=== PATIENT | female | born 1990 | race African-American/Black ===

== ENCOUNTER 2017-01-23 17:43 | Emergency (ER) | payer BC ==
[~2017-01-23] VITALS: Ht 165.1 cm; Wt 111.4 kg
[~2017-01-23 17:43] MED LIST: (None)3.5 GM OP; AMOXICILLIN500 MG OR; AMOXICILLIN500 MG PO; BACTRIM DS1 TAB PO; BLEPH-1010 % OU; CIPRO500 MG OR; CIPROFLOXACN500 MG PO; DENIES HOME MED; DEPO-PROVER400 MG/ML IM; FLEXERIL PO; FLONASE NASAL50 MCG; GENTAMICIN15 ML/BTL OP; LORTAB 10-325 M1 TAB PO; LORTAB 5 OR; MACRODANTIN100 MG OR; METRONIDAZOL500 MG PO; NO; NO HOME MEDS; NO MEDS; PENICILLN VK500 M1 PO; PENICILLN VK500 MG OR; PENICILLN VK500 MG PO; PERCOCET 5/325M1 TAB OR; PERCOCET1 TA4 PO; PREDNISONE10 MG PO; PRENATAL1 TAB OR; PROMETHAZINE25 MG RE; PROVENTIL HFA IN; REGLAN10 MG OR; ROBITUSS12 OR; ROBITUSSIN AC10 ML PO; ULTRAM50 M1 OR; ULTRAM50 M1 PO; ULTRAM50 MG OR; ULTRAM50 MG PO; ZESTRIL10 M1 PO; ZITHROMAX250 MG PO; ZOFRAN ODT4 MG OR; ZOFRAN ODT4 MG PO; ZOFRAN ODT8 MG PO; ZPAK OR; ZPAK PO
[2017-01-23 18:11] VITALS: BP 119/60
== END 2017-01-23 18:11 | disposition left against medical advice (07) | DRG 951 ==
LOC: ED 17:43 → LWOBS 18:11
DX: Z91.19 Patient's noncompliance with other medical treatment and regimen (principal)

== ENCOUNTER 2017-02-11 19:46 | Emergency (ER) | payer BC ==
[~2017-02-11] VITALS: Ht 165.1 cm; Wt 111.3 kg
[2017-02-11 21:17] VITALS: BP 130/82
== END 2017-02-11 21:30 | disposition home or self-care (01) | DRG 93 ==
LOC: ED 19:46
DX: R29.818 Other symptoms and signs involving the nervous system (principal); I10 Essential (primary) hypertension

== ENCOUNTER 2017-03-08 22:56 | Emergency (ER) | payer BC ==
[~2017-03-08] VITALS: Ht 165.1 cm; Wt 119.0 kg
[2017-03-08] MEDS ORDERED: AMOXICILLIN500 MG PO (23:15)
[2017-03-08] MEDS ORDERED: ULTRAM50 M1 PO (23:15)
[2017-03-08 23:55] VITALS: BP 128/86
== END 2017-03-08 23:55 | disposition home or self-care (01) | DRG 159 ==
LOC: ED 22:56
DX: K04.7 Periapical abscess without sinus (principal); S02.5XXA Fracture of tooth (traumatic), initial encounter for closed fracture

== ENCOUNTER 2017-04-07 10:52 | Emergency (ER) | payer BC ==
[~2017-04-07] VITALS: Ht 165.1 cm; Wt 111.0 kg
[2017-04-07] MEDS ORDERED: ULTRAM50 M1 PO (12:30)
[2017-04-07 12:44] VITALS: BP 121/80
== END 2017-04-07 12:40 | disposition home or self-care (01) | DRG 563 ==
LOC: ED 10:52
DX: S93.401A Sprain of unspecified ligament of right ankle, initial encounter (principal); W06.XXXA Fall from bed, initial encounter; X50.1XXA Overexertion from prolonged static or awkward postures, initial encounter; Y93.84 Activity, sleeping; Y92.003 Bedroom of unspecified non-institutional (private) residence as the place of occurrence of the external cause

== ENCOUNTER 2017-04-27 20:19 | Emergency (ER) | payer BC ==
[~2017-04-27] VITALS: Ht 165.1 cm; Wt 116.0 kg
[2017-04-27 21:00] VITALS: BP 144/72
[2017-04-27 21:07] LABS: URINE BILIRUBIN - DIPSTICK NEGATIVE (NEGATIVE); URINE BLOOD DIPSTICK LARGE (NEGATIVE); URINE CLARITY TURBID; URINE COLOR YELLOW; URINE GLUCOSE - DIPSTICK NEGATIVE (NEGATIVE); URINE KETONE NEGATIVE (NEGATIVE); URINE LEUK ESTERASE SMALL (NEGATIVE); URINE NITRITE - DIPSTICK NEGATIVE (Negative); URINE PH 5.5 (4.5-8.0); URINE PROTEIN - DIPSTICK 30 mg/dL (NEG-TRACE); URINE SPECIFIC GRAVITY <=1.005; URINE UROBILINOGEN - DIPSTICK 0.2 E.U./dL (0.2)
[2017-04-27 21:28] LABS: URINE BACTERIA RARE hpf; URINE RBC TNTC RBC/hpf (0-5); URINE SQUAMOUS EPITHELIAL CELL FEW EPI/hpf (0-FEW)
== END 2017-04-27 21:41 | disposition left against medical advice (07) | DRG 690 ==
LOC: ED 20:19
PROVIDERS: Emergency Medicine
DX: N39.0 Urinary tract infection, site not specified (principal); I10 Essential (primary) hypertension; Z91.19 Patient's noncompliance with other medical treatment and regimen

== ENCOUNTER 2017-05-12 02:34 | Observation (INO) | payer BC ==
[~2017-05-12] VITALS: Ht 165.1 cm; Wt 102.7 kg
[2017-05-12] VITALS (16 sets, daily range): BP systolic 96–148; BP diastolic 42–87
[2017-05-12 03:43] LABS: HEMATOCRIT 39.5 % (37.0-47.0); HEMOGLOBIN 13.5 g/dl (12.0-16.0); IMMATURE GRANULOCYTES 0.3 % (0.0-1.0); MEAN CELL VOLUME 87.2 fL CALC (80.0-100.0); MEAN CORPUSCULAR HGB 29.8 pG CALC (26.0-32.0); MEAN CORPUSCULAR HGB CONC 34.2 g/L CALC (32.0-36.0); NEUT# 3.22 thou/uL (2.00-7.15); RED BLOOD COUNT 4.53 mill/uL (4.20-5.60); RED CELL DISTRI WIDTH 13.4 % (11.5-15.5)
[2017-05-12 04:44] LABS: ALBUMIN 4.6 g/dL (3.2-5.0); ALKALINE PHOSPHATASE 80 u/l (38-126); ANION GAP 21 (6-22 (CALC)); BILIRUBIN, TOTAL 0.6 mg/dL (0.0-1.4); BUN 10 mg/dL (7-17); BUN/CREATININE RATIO 11 (12-20 (CALC)); CALCIUM 9.1 mg/dL (8.4-10.2); CARBON DIOXIDE 21 mmol/l (22-30); CHLORIDE 107 mmol/l (95-108); CREATININE 0.9 mg/dL (0.5-1.0); ETHYL ALCOHOL 158 mg/dl (0-30); GFR > 60 ML/MIN (>=60 (CALC)); GFR FOR AFR.AMER. > 60 ML/MIN (>=60 (CALC)); GLUCOSE 117 mg/dL (65-105); POTASSIUM 3.3 mmol/l (3.5-5.1); PROTHROMBIN TIME 10.7 SECONDS (9.0-12.5); SGOT/AST 20 u/l (14-36); SGPT/ALT 28 u/l (9-52); SODIUM 146 mmol/l (137-146); TOTAL PROTEIN 8.7 g/dL (6.3-8.2)
[2017-05-12 04:52] LABS: MYOGLOBIN 20 ng/mL (0 - 62)
[2017-05-12 06:15] LABS: URINE BILIRUBIN - DIPSTICK NEGATIVE (NEGATIVE); URINE BLOOD DIPSTICK TRACE-INTACT (NEGATIVE); URINE CLARITY CLEAR; URINE COLOR YELLOW; URINE GLUCOSE - DIPSTICK NEGATIVE (NEGATIVE); URINE KETONE NEGATIVE (NEGATIVE); URINE LEUK ESTERASE TRACE (NEGATIVE); URINE NITRITE - DIPSTICK NEGATIVE (Negative); URINE PH 5.5 (4.5-8.0); URINE PROTEIN - DIPSTICK NEGATIVE (NEG-TRACE); URINE SPECIFIC GRAVITY 1.015; URINE UROBILINOGEN - DIPSTICK 0.2 E.U./dL (0.2)
[2017-05-12 06:21] LABS: BARBITURATES NEGATIVE (NEGATIVE); COCAINE NEGATIVE (NEGATIVE); METHADONE NEGATIVE (NEGATIVE); OXCYCODONE NEGATIVE (NEGATIVE); TETRAHYDROCANNABIONOL NEGATIVE (NEGATIVE); TRICYLIC ANTIDEPRESSANTS NEGATIVE (NEGATIVE)
[2017-05-13 00:10] VITALS: BP 108/72
[2017-05-13 02:00] VITALS: BP 104/67
[2017-05-13 04:10] VITALS: BP 111/73
[2017-05-13 05:04] LABS: ANION GAP 15 (6-22 (CALC)); BUN 9 mg/dL (7-17); BUN/CREATININE RATIO 14 (12-20 (CALC)); CALCIUM 9.6 mg/dL (8.4-10.2); CARBON DIOXIDE 23 mmol/l (22-30); CHLORIDE 105 mmol/l (95-108); CREATININE 0.6 mg/dL (0.5-1.0); GFR > 60 ML/MIN (>=60 (CALC)); GFR FOR AFR.AMER. > 60 ML/MIN (>=60 (CALC)); GLUCOSE 137 mg/dL (65-105); POTASSIUM 4.3 mmol/l (3.5-5.1); SODIUM 138 mmol/l (137-146)
[2017-05-13 06:00] LABS: HEMATOCRIT 40.3 % (37.0-47.0); HEMOGLOBIN 13.6 g/dl (12.0-16.0); MEAN CELL VOLUME 88.2 fL CALC (80.0-100.0); MEAN CORPUSCULAR HGB 29.8 pG CALC (26.0-32.0); MEAN CORPUSCULAR HGB CONC 33.7 g/L CALC (32.0-36.0); RED BLOOD COUNT 4.57 mill/uL (4.20-5.60); RED CELL DISTRI WIDTH 13.8 % (11.5-15.5)
[2017-05-13 06:10] VITALS: BP 97/52
[2017-05-13 08:00] VITALS: BP 107/57
[2017-05-13 08:09] LABS: IMMATURE GRANULOCYTES 0.7 % (0.0-1.0); NEUT# 19.71 thou/uL (2.00-7.15)
[2017-05-13] MEDS ORDERED: ADVAIR DISK1 IN (10:59)
[2017-05-13] MEDS ORDERED: TRAMADOL HCL50 MG PO (10:59)
[2017-05-13] MEDS ORDERED: VENTOLIN HFA IN (10:59)
[2017-05-13] MEDS ORDERED: PREDNISONE10 MG PO (10:59)
[2017-05-13 12:00] VITALS: BP 102/57
== END 2017-05-13 12:30 | disposition home or self-care (01) | DRG 897 ==
LOC: ED 02:34 → ED-I 06:33 → ED 06:47 → ICU 06:48
PROVIDERS: Emergency Medicine; ADMIT Internal Medicine; ATTEND Internal Medicine
DX: F10.129 Alcohol abuse with intoxication, unspecified (principal); J45.901 Unspecified asthma with (acute) exacerbation; I10 Essential (primary) hypertension; R07.89 Other chest pain; Y90.6 Blood alcohol level of 120-199 mg/100 ml

== ENCOUNTER 2017-06-05 13:18 | Emergency (ER) | payer BC ==
[~2017-06-05] VITALS: Ht 165.1 cm; Wt 115.6 kg
[~2017-06-05 13:18] MED LIST changes: +ADVAIR DISK1 IN; +TRAMADOL HCL50 MG PO; +VENTOLIN HFA IN
[2017-06-05] MEDS ORDERED: ZITHROMAX250 MG PO (14:06)
[2017-06-05] MEDS ORDERED: FLONASE AL50 MCG/ACT (14:06)
[2017-06-05] MEDS ORDERED: AMLODIPINE BESYL5 MG PO (14:06)
[2017-06-05 14:20] VITALS: BP 121/78
== END 2017-06-05 14:20 | disposition home or self-care (01) | DRG 153 ==
LOC: ED 13:18
DX: J06.9 Acute upper respiratory infection, unspecified (principal); I10 Essential (primary) hypertension; J45.909 Unspecified asthma, uncomplicated

== ENCOUNTER 2017-09-19 06:28 | Emergency (ER) | payer SELFPAY ==
[~2017-09-19] VITALS: Ht 165.1 cm; Wt 112.0 kg
[~2017-09-19 06:28] MED LIST changes: +AMLODIPINE BESYL5 MG PO; +FLONASE AL50 MCG/ACT
[2017-09-19 07:14] LABS: HEMATOCRIT 39.8 % (37.0-47.0); HEMOGLOBIN 13.5 g/dl (12.0-16.0); IMMATURE GRANULOCYTES 0.2 % (0.0-1.0); MEAN CELL VOLUME 88.6 fL CALC (80.0-100.0); MEAN CORPUSCULAR HGB 30.1 pG CALC (26.0-32.0); MEAN CORPUSCULAR HGB CONC 33.9 g/L CALC (32.0-36.0); NEUT# 2.91 thou/uL (2.00-7.15); RED BLOOD COUNT 4.49 mill/uL (4.20-5.60); RED CELL DISTRI WIDTH 14.2 % (11.5-15.5)
[2017-09-19 07:33] LABS: ALBUMIN 4.3 g/dL (3.2-5.0); ALKALINE PHOSPHATASE 74 u/l (38-126); ANION GAP 20 (6-22 (CALC)); BILIRUBIN, TOTAL 0.6 mg/dL (0.0-1.4); BUN 11 mg/dL (7-17); BUN/CREATININE RATIO 13 (12-20 (CALC)); CALCIUM 10.1 mg/dL (8.4-10.2); CARBON DIOXIDE 20 mmol/l (22-30); CHLORIDE 107 mmol/l (95-108); CREATININE 0.8 mg/dL (0.5-1.0); GFR > 60 ML/MIN (>=60 (CALC)); GFR FOR AFR.AMER. > 60 ML/MIN (>=60 (CALC)); GLUCOSE 99 mg/dL (65-105); POTASSIUM 4.4 mmol/l (3.5-5.1); SGOT/AST 26 u/l (14-36); SGPT/ALT 28 u/l (9-52); SODIUM 142 mmol/l (137-146); TOTAL PROTEIN 7.8 g/dL (6.3-8.2)
[2017-09-19 08:08] LABS: INFLUENZA A NONE DETECTED (NONE DETECT); INFLUENZA B NONE DETECTED (NONE DETECT)
[2017-09-19 09:34] VITALS: BP 125/76
== END 2017-09-19 09:34 | disposition short-term general hospital (02) | DRG 203 ==
LOC: ED 06:28 → ED-I 08:47 → ED 09:34
PROVIDERS: Emergency Medicine
DX: J45.902 Unspecified asthma with status asthmaticus (principal); R06.02 Shortness of breath; X14.0XXA Inhalation of hot air and gases, initial encounter; Y93.89 Activity, other specified; Y92.89 Other specified places as the place of occurrence of the external cause; R11.0 Nausea
CPT/HCPCS: J3475

== ENCOUNTER 2017-09-26 23:14 | Emergency (ER) | payer MEDICAID ==
[~2017-09-26] VITALS: Ht 165.1 cm; Wt 112.0 kg
[2017-09-27 01:17] LABS: HEMATOCRIT 39.5 % (37.0-47.0); HEMOGLOBIN 13.7 g/dl (12.0-16.0); IMMATURE GRANULOCYTES 0.4 % (0.0-1.0); MEAN CELL VOLUME 86.8 fL CALC (80.0-100.0); MEAN CORPUSCULAR HGB 30.1 pG CALC (26.0-32.0); MEAN CORPUSCULAR HGB CONC 34.7 g/L CALC (32.0-36.0); NEUT# 3.59 thou/uL (2.00-7.15); RED BLOOD COUNT 4.55 mill/uL (4.20-5.60); RED CELL DISTRI WIDTH 13.9 % (11.5-15.5)
[2017-09-27 01:32] LABS: ALBUMIN 4.2 g/dL (3.2-5.0); ALKALINE PHOSPHATASE 98 u/l (38-126); ANION GAP 13 (6-22 (CALC)); BILIRUBIN, TOTAL 1.1 mg/dL (0.0-1.4); BUN 4 mg/dL (7-17); BUN/CREATININE RATIO 5 (12-20 (CALC)); CALCIUM 9.4 mg/dL (8.4-10.2); CARBON DIOXIDE 19 mmol/l (22-30); CHLORIDE 113 mmol/l (95-108); CREATININE 0.8 mg/dL (0.5-1.0); GFR > 60 ML/MIN (>=60 (CALC)); GFR FOR AFR.AMER. > 60 ML/MIN (>=60 (CALC)); GLUCOSE 105 mg/dL (65-105); POTASSIUM 3.8 mmol/l (3.5-5.1); SGOT/AST 25 u/l (14-36); SGPT/ALT 29 u/l (9-52); SODIUM 142 mmol/l (137-146)
[2017-09-27] MEDS ORDERED: CODEINE/GUAIFEN1 SOL PO (02:08)
[2017-09-27 02:15] VITALS: BP 118/88
== END 2017-09-27 02:26 | disposition home or self-care (01) | DRG 203 ==
LOC: ED 23:14
PROVIDERS: Emergency Medicine
DX: J45.909 Unspecified asthma, uncomplicated (principal); R05 Cough; R06.02 Shortness of breath

== ENCOUNTER 2017-12-08 15:11 | Emergency (ER) | payer SELFPAY ==
[~2017-12-08] VITALS: Ht 165.1 cm; Wt 103.0 kg
[~2017-12-08 15:11] MED LIST changes: +CODEINE/GUAIFEN1 SOL PO
[2017-12-08 16:06] LABS: HEMATOCRIT 40.7 % (37.0-47.0); IMMATURE GRANULOCYTES 0.1 % (0.0-1.0); MEAN CELL VOLUME 88.1 fL CALC (80.0-100.0); MEAN CORPUSCULAR HGB 30.3 pG CALC (26.0-32.0); MEAN CORPUSCULAR HGB CONC 34.4 g/L CALC (32.0-36.0); NEUT# 4.01 thou/uL (2.00-7.15); RED BLOOD COUNT 4.62 mill/uL (4.20-5.60); RED CELL DISTRI WIDTH 13.7 % (11.5-15.5)
[2017-12-08 16:43] LABS: ANION GAP 21 (6-22 (CALC)); BUN 8 mg/dL (7-17); BUN/CREATININE RATIO 9 (12-20 (CALC)); CARBON DIOXIDE 20 mmol/l (22-30); CHLORIDE 104 mmol/l (95-108); CREATININE 0.8 mg/dL (0.5-1.0); GFR > 60 ML/MIN (>=60 (CALC)); GFR FOR AFR.AMER. > 60 ML/MIN (>=60 (CALC)); POTASSIUM 4.5 mmol/l (3.5-5.1); SODIUM 140 mmol/l (137-146)
[2017-12-08 17:19] VITALS: BP 140/71
== END 2017-12-08 17:20 | disposition short-term general hospital (02) | DRG 203 ==
LOC: ED 15:11
PROVIDERS: Family Medicine
DX: J45.901 Unspecified asthma with (acute) exacerbation (principal); I10 Essential (primary) hypertension; R06.02 Shortness of breath; R05 Cough; R00.0 Tachycardia, unspecified

== ENCOUNTER 2018-06-13 12:58 | Emergency (ER) | payer SELFPAY ==
[~2018-06-13] VITALS: Ht 165.1 cm; Wt 99.5 kg
[2018-06-13 13:24] VITALS: BP 130/92
== END 2018-06-13 13:35 | disposition home or self-care (01) | DRG 605 ==
LOC: ED 12:58
DX: S40.011A Contusion of right shoulder, initial encounter (principal); I10 Essential (primary) hypertension; J45.909 Unspecified asthma, uncomplicated; W19.XXXA Unspecified fall, initial encounter

== ENCOUNTER 2018-07-16 00:22 | Emergency (ER) | payer SELFPAY ==
[~2018-07-16] VITALS: Ht 165.1 cm; Wt 100.0 kg
[2018-07-16 01:39] LABS: INFLUENZA A NONE DETECTED (NONE DETECT); INFLUENZA B NONE DETECTED (NONE DETECT)
[2018-07-16] MEDS ORDERED: CEPHALEXIN500 M1 PO (01:45)
[2018-07-16 02:15] VITALS: BP 131/78
== END 2018-07-16 02:15 | disposition home or self-care (01) | DRG 153 ==
LOC: ED 00:22
PROVIDERS: Emergency Medicine
DX: J06.9 Acute upper respiratory infection, unspecified (principal); R05 Cough